=== PATIENT | male | born 1970 | race African-American/Black ===

== ENCOUNTER 2021-05-24 14:57 | Emergency (ER) | payer OTHER ==
[~2021-05-24] VITALS: Ht 182.9 cm; Wt 113.0 kg
[2021-05-24 15:02] VITALS: BP 160/80
== END 2021-05-24 15:32 ==
LOC: ER 14:57
DX: Z02.79 Encounter for issue of other medical certificate (principal); R94.31 Abnormal electrocardiogram [ECG] [EKG]
CPT/HCPCS: 93005; 99283